=== PATIENT | male | born 1935 | race Asian ===

== ENCOUNTER 2023-04-07 13:34 | Emergency (ER) | payer MEDICARE, MEDICAID ==
[~2023-04-07] VITALS: Ht 172.7 cm; Wt 84.1 kg
[~2023-04-07 13:34] MED LIST: AMLO5TAB16 PO; ATOR10TA70 PO; CLON0.1T2 PO; DOCU-22 PO; GABA-530 PO; KETO-96 EACHEYE; LOSA100T58 PO
[2023-04-07] MEDS ORDERED: CefTRIAXone 2gm/D5W 50ml BAG 50 ML IV ONE (14:40)
[2023-04-07] MEDS ORDERED: vancomycin/NS 1 GM ADD-VANTAGE 250 ML IV ONE (14:45)
[2023-04-07 15:30] LABS: BASOPHILS % (AUTO) 0.8 % (0-1); EOSINOPHILS # (AUTO) 0.1 X10'3 (0-0.9); EOSINOPHILS % (AUTO) 1.4 % (0-6); HEMATOCRIT 42.9 % (42.0-52.0); HEMOGLOBIN 14.5 g/dl (14.0-17.9); LYMPHOCYTES # (AUTO) 0.7 X10'3 (1.1-4.8); LYMPHOCYTES % (AUTO) 13.7 % (21-51); MEAN CORPUSCULAR HEMOGLOBIN 30.7 PG (27.0-31.0); MEAN CORPUSCULAR HGB CONC 33.7 g/dL (33.0-36.5); MEAN CORPUSCULAR VOLUME 90.9 FL (78-98); MEAN PLATELET VOLUME 6.9 FL (7.4-10.4); MONOCYTES # (AUTO) 0.7 X10'3 (0-0.9); MONOCYTES % (AUTO) 12.6 % (2-12); NEUTROPHILS # (AUTO) 3.8 X10'3 (1.8-7.7); NEUTROPHILS % (AUTO) 71.5 % (42-75); PLATELET COUNT 242 X10'3 (140-440); RED BLOOD COUNT 4.72 X10'6 (4.70-6.10); RED CELL DISTRIBUTION WIDTH 13.7 % (11.5-14.5); WHITE BLOOD COUNT 5.3 X10'3 (4.5-11.0)
[2023-04-07 16:32] LABS: ALANINE AMINOTRANSFERASE 75 U/L (12-78); ALBUMIN 3.1 G/DL (3.4-5.0); ALBUMIN/GLOBULIN RATIO 0.8 (1.1-1.5); ALKALINE PHOSPHATASE 78 IU/L (46-116); ANION GAP 3 (8-16); ASPARTATE AMINO TRANSFERASE 39 U/L (10-37); BILIRUBIN,TOTAL 0.4 MG/DL (0.1-1.0); BLOOD UREA NITROGEN 9 MG/DL (7-18); BUN/CREATININE RATIO 11.7 (10.0-20.0); CALCIUM 8.4 MG/DL (8.5-10.1); CHLORIDE 95 MMOL/L (99-107); CREATININE 0.77 MG/DL (0.60-1.10); GLUCOSE 106 MG/DL (70-104); POTASSIUM 3.8 MMOL/L (3.5-5.1); SODIUM 129 MMOL/L (135-145); TOTAL CARBON DIOXIDE 31.1 MMOL/L (24-32); TOTAL PROTEIN 6.9 G/DL (6.4-8.2); eCRCL 63 ML/MIN; eGFR > 90 ML/MIN
[2023-04-07] MEDS ORDERED: CEPH250T PO (17:31)
[2023-04-07] MEDS ORDERED: SULF1TAB45 PO (17:31)
[2023-04-07 19:57] VITALS: BP 126/80; PULSE 111; RESP 18; TEMP 98.4; O2SAT 95
== END 2023-04-07 20:01 | disposition home or self-care (01) ==
LOC: ER 13:35
DX: L03.213 Periorbital cellulitis (principal)
CPT/HCPCS: 36415; 70480; 80053; 85025; 96365; 96366; 96368; 96376; 99285; J0696; J3370